=== PATIENT | male | born 1965 | race Caucasian/White ===

== ENCOUNTER → 2017-01-25 | Day surgery (SDC) | payer BC ==
[~2017-01-25] MED LIST: BUPIVACAINE/EPINEPHRINE 0.5% PF 10 ML VIAL ONE; GENTAMICIN SULFATE 80 MG/2 ML VIAL ONE; KETOROLAC TROMETHAMINE 30 MG/ML (IVP) VIAL IV PUSH ONE; LACTATED RINGER'S 1000 ML INJ 1,000 ML ONE; ONDANSETRON HCL 4 MG/2 ML VIAL IV PUSH ONE; PROPOFOL 200 MG/20 ML AMP IV ONE; SODIUM CHLORIDE 0.9% INJ 10 ML ONE; ceFAZolin INJ 1,000 MG VIAL ONE
--- NOTE | 2017-01-28 06:41 | MP ---
cc: TERESITA MUNOZ DATE OF SURGERY January 25, 2017 PREOPERATIVE DIAGNOSIS Left elbow olecranon bursitis with small wound. POSTOPERATIVE DIAGNOSIS Left elbow infected olecranon bursitis with small wound with abscess of distal humerus and proximal forearm. SURGEON Teresita Munoz MD FIRING PIN GAUGER Staff PROCEDURES 1. Left elbow excision of olecranon bursa with excision of draining wound. 2. Left distal humerus irrigation and debridement for abscess. 3. Left proximal forearm irrigation and debridement for abscess. CULTURES Five cultures. ANESTHESIA General anesthesia DRAINS 10-mm channel drain. TOURNIQUET TIME 0 minutes PROCEDURE The patient was brought back to the operative theater. General anesthesia was administered. Initially we expected that this was a non-infective process since there was no active drainage and no definite signs of overt infection, although he did have evidence of fluid collections and therefore he was given intravenous Ancef. The left upper she was prepped and draped in the usual sterile fashion with him in the supine position. Initially we started just by ellipsing the very small area of opening over the olecranon bursa. We found extremely thickened tissue over the bursa including the bursa as well. We ended up incising through the bursa and as we incised through the bursa then we found first an amount of brownish fluid which did not look definitively infected. There were multiple different pockets of thickening around the elbow, then as we started opening up these pockets, the first one being in the distal humerus, we found gross purulence. We found a significant amount of infected, necrotic fat. We continually worked our way around from the distal humerus to the lateral aspect, then to the proximal forearm dorsally and then to the medial aspect of the elbow. With each of these steps we found multiple different pockets of purulence, some within the skin itself, some within bursal tissue and some within thickened tissue that was laying directly on the fascia. We excised all of this thickened tissue including the distal humerus, medial and lateral elbow and also proximal forearm using both sharp resection including a rongeur, using a scalpel and also using a Bovie. We performed a complete bursectomy over the olecranon. There was significant granulation tissue over this area. We did again take five cultures, four of which were culture swabs and one of them was a tissue culture. After all this debridement had been completed, we then irrigated thoroughly the wound and all of the deep tissues. We exchanged instruments, put new the gloves on and placed a new drape down. We made decision to go ahead and put in a 10-mm channel drain which was left in a U-type fashion through the distal humerus and then extending down laterally towards the proximal forearm to allow for as much drainage as possible. We then closed skin with 2-0 Monocryl, followed by 3-0 nylon and we also sutured the drain into place as well. The patient had a bulky dressing applied. POSTOPERATIVE PLAN My recommendation to the patient is to move forward with a staged type of procedure, bringing him back to the operating room early next week for repeat debridement and hopefully final closure. I am concerned that if we do not have a repeat debridement, that the patient may have recurrence of his infection. Additionally, the patient will be given a prescription for Keflex and Bactrim which I want him to start today and then we will clinically follow the cultures to ensure that this patient does not require intravenous antibiotic treatment. MD OLMAN Dumont/GREY /3:36 PM /6:15 AM
== END | disposition home or self-care (01) ==
LOC: ESDC 12:56
PROVIDERS: ATTEND Orthopaedic Surgery
DX: M70.22 Olecranon bursitis, left elbow (principal)
CPT/HCPCS: 01710; 24105; 87070; 87176; 87205; J0690; J1580; J1885; J2405; J3010; J7120

== ENCOUNTER → 2017-01-29 | Day surgery (SDC) | payer BC ==
[~2017-01-29] MED LIST changes: +BUPIVACAINE HCL PF 0.25% 30 ML VIAL ONE; -BUPIVACAINE/EPINEPHRINE 0.5% PF 10 ML VIAL ONE; -GENTAMICIN SULFATE 80 MG/2 ML VIAL ONE; -KETOROLAC TROMETHAMINE 30 MG/ML (IVP) VIAL IV PUSH ONE; +LIDOCAINE HCL 1% PF 30 ML VIAL ONE; -SODIUM CHLORIDE 0.9% INJ 10 ML ONE
--- NOTE | 2017-01-29 22:42 | MP ---
cc: TERESITA MUNOZ MD DATE OF SURGERY 01/29/17 PREOPERATIVE DIAGNOSIS Left elbow infected olecranon bursitis status post irrigation and debridement. POSTOPERATIVE DIAGNOSIS Left elbow infected olecranon bursitis status post irrigation and debridement. SURGEON Renetta Munoz MD PAPER MACHINE OPERATOR IMAN De La Fuente PAPER MACHINE OPERATOR IMAN Webster The surgical procedure was assisted by my Advanced Registered Nurse Practitioner. My ANTI TANK MISSILEMAN presence was necessary throughout this case for the manipulation and positioning of the surgical extremity. My ANTI TANK MISSILEMAN was assisting me throughout the duration of this procedure. The skill set of an Advance Registered Nurse Practitioner was medically necessary to complete this procedure. During the surgical case, the ophthalmic technician apprentice was working at the back table and the Advance Registered Nurse Practitioner was directly assisting me. PROCEDURE Left elbow staged/planned revision excision of olecranon bursa with irrigation and debridement. ANESTHESIA General anesthesia PROCEDURE IN DETAIL The patient was brought back to operative theater. General anesthesia was administered. The patient received intravenous Ancef. The left upper extremity was prepped and draped in usual sterile fashion after general anesthesia had been administered. The previous sutures were removed and then we opened the skin which was healing very nicely with no skin breakdown. As soon as we opened the skin, we identified a mild amount of serosanguineous fluid within the arm. There was no recurrent purulence noted. There was some healthy-appearing granulation tissue overlying the olecranon bursa which was excised and debrided. We inspected all of the skin on the undersurface all through the distal humerus and also in the proximal forearm area. We did not find any recurrent signs of necrotic tissue. There was a vein that was leaking a little bit of blood which we Bovie coagulated. We used a rongeur around the olecranon bursa and then we also used multiple Ray-Tecs and olecranon pads to mechanically debride any nonviable tissue along the fascial plane and the undersurface of the skin and removed only a very small amount of material. We then thoroughly irrigated the entire wound including the space under the forearm and the distal humerus. We did excise some of the skin on the medial side because there was one small area that was a bit dusky and we wanted to have as much viable skin as possible. We then exchanged gloves after the irrigation and we then closed skin with 2-0 Monocryl followed by 3-0 nylon. The patient was placed into a bulky dressing. POSTOPERATIVE PLAN The patient will continue with the oral antibiotics which he was previously prescribed and we will clinically follow him for decision as far as length of antibiotics. Note that the five cultures that were taken at the previous surgery had been no growth. MD OLMAN Dumont/ /4:26 PM /10:36 PM
== END | disposition home or self-care (01) ==
LOC: ESDC 14:51
PROVIDERS: ATTEND Orthopaedic Surgery
DX: M71.122 Other infective bursitis, left elbow (principal)
CPT/HCPCS: 01710; 24105; J0690; J2405; J3010; J7120

== ENCOUNTER 2017-03-06 17:40 | Day surgery (SDC) | payer BC ==
[~2017-03-06] VITALS: Ht 198.1 cm; Wt 100.0 kg
[2017-03-06 18:10] VITALS: BP 122/73; PULSE 45; RESP 18; TEMP 97.9; O2SAT 99
[2017-03-06] MEDS ORDERED: VANCOMYCIN HCL 1000 MG VIAL ONE (18:13)
[2017-03-06] MEDS ORDERED: VANCOMYCIN INJ 1,000 MG in SODIUM CHLOR 0.9% 250 ML INJ 250 ML IV ONE (18:15)
--- NOTE | 2017-03-06 18:28 | PD.RAD ---
Radiology Post PICC Prog Note Pre Procedure Diagnosis: (1) Cellulitis of left elbow Post Procedure Diagnosis: (1) Cellulitis of left elbow Procedure: Right PICC line placement Procedure Date: Mar 06, 2017 Supervising Radiologist Jayden Dickson JR Proceduralist/Assist: Cici Salinas, RT(R)() Device Side: Right Vietnamese: 4 single lumen cm: 41 Catheter: Power PICC Plan of Activity Patient to Unit: [facility] Patient Condition: Good PICC line can be used immediately Jr. Randolph,Jayden Faria MD Mar 06, 2017 18:28
[2017-03-06] MEDS ORDERED: SODIUM CHLORIDE 0.9% FLUSH 10 ML FLUSH IVF PRN ×2 (18:30)
[2017-03-07] MEDS ORDERED: SODIUM CHLORIDE 0.9% FLUSH 10 ML FLUSH IVF SCH (09:00)
--- NOTE | 2017-03-07 09:29 | RADRPT ---
EXAM DATE/TIME: 03/06/2017 18:09 [facility] COMPARISON: No previous studies available for comparison. INDICATIONS : Patient is in need of placement of a right sided PICC line for medication administration. MEDICAL HISTORY : History of left elbow joint effusion, MRSA cellulitis. SURGICAL HISTORY : N/A ENCOUNTER: Initial ACUITY: 2 days PAIN SCORE: 0/10 FLUORO TIME: 0.2 minutes IMAGE SERIES: 1 ACCESS: Right basilic vein DEVICE(S): 1.) 4 Guamanian single lumen 41 cm Xcela Power PICC PROCEDURE : 1. Ultrasound guidance for venous catheterization. 2. Fluoroscopic guidance. 3. Ultrasound & fluoroscopic guided central venous Power PICC line placement. The risks, benefits and alternatives to the procedure were explained and verbal and written consent w as obtained. The site was prepped in sterile fashion. Full sterile technique was used, including ca p, mask, sterile gloves and gown and a large sterile sheet. Hand hygiene and 2% chlorhexidine prep w as utilized per protocol for cutaneous antisepsis with appropriate dry time for site. The skin and s ubcutaneous tissues were infiltrated with local anesthetic solution. Under direct ultrasound guidance, a suitable vein was accessed and a measuring guidewire was introduc ed and positioned in the central venous system. The ultrasound images depicting access guidance were saved and stored to PACS for permanent record. A Power Injectable PICC line was cut to prescribed length and introduced, positioned with tip at the cavoatrial junction level. The line was flushed and secured per protocol. CONCLUSION: 1. Uncomplicated central venous Power PICC line placement. 2. The PICC line can be used immediately. Jayden Dickson Jr., MD on March 07, 2017 at 9:26 Board Certified Radiologist. This report was verified electronically.
== END 2017-03-06 19:18 | disposition home or self-care (01) ==
LOC: HROP 17:40 → HRIP 17:45 → HROP 19:18
PROVIDERS: ATTEND Radiology Body Imaging
DX: L03.114 Cellulitis of left upper limb (principal)
CPT/HCPCS: 36569; 76937; 77001; C1751; J1642; J3370

== ENCOUNTER 2017-07-21 06:20 | Day surgery (SDC) | payer BC ==
[~2017-07-21] VITALS: Ht 198.1 cm; Wt 225.0 kg
[2017-07-21] MEDS ORDERED: GENTAMICIN SULFATE 80 MG/2 ML VIAL ONE (08:16)
[2017-07-21 09:16] VITALS: TEMP 97.6
[2017-07-21] MEDS ORDERED: SODIUM CHLORIDE 0.9% INJ 100 ML ONE (09:24)
[2017-07-21] MEDS ORDERED: DEXT 5%-NACL 0.45% 1000 ML INJ 1,000 ML IV SCH (09:26)
[2017-07-21] MEDS ORDERED: ONDANSETRON HCL 4 MG/2 ML VIAL IVP PRN (09:30)
[2017-07-21] MEDS ORDERED: oxyCODONE/ACETAMINOPHEN 5 MG/325 MG TAB PO PRN ×2 (09:30)
[2017-07-21] MEDS ORDERED: MORPHINE SULFATE 4 MG/ML INJ IV PUSH PRN (09:30)
[2017-07-21] MEDS ORDERED: VANCOMYCIN HCL 1000 MG VIAL ONE (09:30)
[2017-07-21] MEDS ORDERED: SODIUM CHLORIDE 0.9% FLUSH 5 ML FLUSH IVF PRN (09:30)
[2017-07-21] MEDS ORDERED: SODIUM CHLOR 0.9% 250 ML INJ 250 ML ONE (09:30)
[2017-07-21] MEDS ORDERED: diphenhydrAMINE HCL 25 MG CAP PO PRN (09:30)
--- NOTE | 2017-07-21 09:47 | MH ---
cc: MARTINEZ ROWE M.D. DATE OF ADMISSION: 07/21/2017 REASON FOR ADMISSION Left elbow pain and swelling with infection. HISTORY OF PRESENT ILLNESS This patient is a 51-year-old male who has developed chronic pain and swelling over his left elbow with symptoms consistent with olecranon bursitis. This has been going on greater than 6 months duration. He has had conservative treatment with multiple aspirations and multiple cortisone injections into the left elbow olecranon bursa. He always had recurrence of symptoms. He has subsequently undergone previous left elbow irrigation and debridement with excision of the olecranon bursa. He had a drain placed. He subsequently developed an infection and cultures grew out methicillin-resistant staph aureus. He was treated by Dr. Merry Montelongo, infectious disease with Zyvox antibiotic. He had some preliminary resolution of symptoms but then subsequently was in [place] and had a fall and new trauma with reinjury to that left elbow. He did have his elbow aspirated during his vacation in [place] after his fall. 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 Also recent aspiration showed gram-positive cocci under gram stain evaluation. He has had increased pain and swelling of his left elbow and has a fistula over the tip of the olecranon which is draining purulent fluid. He also has a separate area of swelling along the proximal third forearm along the ulnar border with redness and pain in this region as well. He was evaluated by the undersigned. He currently denies fevers or chills or malaise. PAST MEDICAL HISTORY Past medical history is otherwise negative. PAST SURGICAL HISTORY As above. MEDICATION He takes no medications. ALLERGIES He has no known drug allergies. SOCIAL HISTORY He is a nonsmoker, he occasionally drinks alcohol, no illicit drug use. He is very active and enjoys working out on a daily basis. REVIEW OF SYSTEMS Negative for 10 systems other than the HPI. EXAMINATION GENERAL: The patient is awake, alert, in no acute distress. HEENT: Normocephalic, atraumatic. Pupils are round, reactive to light. Extraocular muscles are intact. NECK: Neck is supple. LUNGS: Clear. HEART: Regular rate and rhythm. ABDOMEN: Soft, nontender. EXTREMITIES: Exam of the left upper extremity, he has a small opening along the tip of the olecranon with some surrounding erythema and slight drainage. He also has a separate area of swelling along the ulnar border proximal third forearm with tenderness, redness and swelling of this region as well. He has full painless range of motion of his left and right elbow. Strength is intact. No instability. Compartment soft, 2+ radial pulses. Neurovascularly intact distally. IMAGING STUDIES He had a recent MRI performed that shows no evidence of osteomyelitis. There is soft tissue swelling in the region of the olecranon bursa. IMPRESSION A 51-year-old male who has recurrent pain and swelling of the left elbow olecranon bursa. He has had previous surgery. He has had multiple cultures performed that grew out both methicillin-resistant staph aureus as well as two separate Mycobacterium organisms. He has increased pain and swelling and some purulent drainage noted. PLAN I discussed the diagnosis with the patient and treatment options, spoke about continued nonoperative treatment versus surgery. Surgery would consist of incision, drainage, irrigation, debridement, excision of the olecranon bursa. We spoke about the option of primary closure versus secondary intention closure with wound vac. I have spoken to Dr. Merry Montelongo as well as at the bedside with the patient in regards to treatment options for antibiotic therapy. We spoke about the risks and benefits including continued infection. At this point the patient does wish to proceed with surgical intervention which I do think is appropriate and this will consist of incision and drainage, excision of the olecranon bursa. I will send cultures in the operating room to include aerobic, anaerobic and acid-fast. Will also send pathology specimen as well. The patient declines a wound vac and prefers primary intention closure. He may get recurrent swelling and infection but he understands. Antibiotic therapy will be management by Dr. Montelongo, but at this point she is leaning towards IV antibiotics. All questions have been answered, surgical consent has been obtained through written consent and surgical site has been marked. MD NAYELI Montesinos/DANYELL /9:10 AM /9:28 AM
--- NOTE | 2017-07-21 10:14 | MP ---
cc: MARTINEZ ROWE DATE OF SURGERY: 07/21/2017 PREOPERATIVE DIAGNOSES Left elbow infected olecranon bursitis, recurrent. POSTOPERATIVE DIAGNOSIS Left elbow infected olecranon bursitis, recurrent. PROCEDURE Left elbow irrigation and debridement, excision olecranon bursa. SURGEON Dr. Martinez Rowe. ARTILLERY OFFICER JAMES Balderrama ANESTHESIA General. ESTIMATED BLOOD LOSS 50 ccs. TOURNIQUET TIME Zero minutes. COMPLICATIONS None. JUSTIFICATION This patient is a 51-year-old male who has had chronic pain, swelling of his left elbow with recurrent olecranon bursitis. He has undergone previous irrigation and debridement surgery. He has also had infection develop to include both MRSA and two different microbacterium organisms. He had recent pain and swelling this weekend with open fistula and purulent drainage noted to come from the elbow. I was contacted by the patient and evaluated the patient in regards to his condition. We spoke about different treatment options. The patient did wish to proceed with surgical irrigation and debridement as outlined above. PROCEDURE IN DETAIL A written consent was obtained. The patient was identified by name, taken to the operating room and placed supine on the operating table. General anesthesia was administered to the patient. We did hold the antibiotic therapy in order to obtain deep cultures. After adequate general anesthesia was administered, the left upper extremity was then prepped and draped using isopropyl alcohol, Hibiclens solution and DuraPrep solution. After a time-out was performed a longitudinal incision was made over the posterior aspect of the left elbow. The area of the open draining fistula was excised with a 15 blade scalpel. There is a small amount of purulent fluid noted to come from the tip of the olecranon and the draining fistula. There was a separate area of swelling along the proximal third forearm region in line with the olecranon border. There was a copious amount of purulent fluid noted to come from this area. I did obtain the cultures from both areas including aerobic, anaerobic and acid-fast bacterium and excision of the synovial and bursal lining surrounding the abscess was completely excised and sent for pathology. After a complete excisional debridement, the wound was thoroughly irrigated with sterile saline pulse lavage antibiotic impregnated solution. Hibiclens and sterile saline was placed on the back table and the wound was then scrubbed and debrided. After the Hibiclens cleansing, I again pulse lavaged, irrigated the wound until it looked completely clean. Edy cautery was used for hemostasis as needed and the wound was then closed primarily with #3-0 Nylon suture. Sterile dressings were applied. The patient tolerated the procedure well with no intraoperative complications noted. MD NAYELI Montesinos/DANYELL /9:16 AM /9:46 AM
[2017-07-21] MEDS ORDERED: PERC5TAB12 PO (10:29)
[2017-07-21 10:30] VITALS: BP 141/68; PULSE 70; RESP 16; O2SAT 99
[2017-07-21] MEDS ORDERED: LACTATED RINGER'S 1000 ML IV PRN (11:15)
[2017-07-21] MEDS ORDERED: POVIDONE IODINE 5% (ANTISEPSIS KIT) 4 APPLICATIONS EACH NARE PRN (11:15)
[2017-07-21] MEDS ORDERED: CHLORHEXIDINE GLUCONATE 2 % 1 PACK (2 CLOTHS) TOPICAL PRN (11:15)
[2017-07-21] MEDS ORDERED: SODIUM CHLORID 0.9% 500 ML IV PRN (11:15)
[2017-07-21] MEDS ORDERED: METOPROLOL TARTRATE 25 MG TAB PO PRN (11:15)
[2017-07-21] MEDS ORDERED: INSULIN HUMAN REGULAR 1,000 UNITS/10 ML VIAL SQ PRN (11:15)
[2017-07-21] MEDS ORDERED: DO NOT ADM ANY ANTICOAGULANT DRUGS PRN (11:30)
[2017-07-21] MEDS ORDERED: PROPOFOL 200 MG/20 ML AMP IV ONE (12:00)
[2017-07-21] MEDS ORDERED: ONDANSETRON HCL 4 MG/2 ML VIAL IV PUSH ONE (12:00)
[2017-07-21] MEDS ORDERED: LIDOCAINE HCL 1% PF 5 ML AMPULE OTHER ONE (12:00)
[2017-07-21] MEDS ORDERED: MIDAZOLAM HCL 2 MG/2 ML VIAL IV ONE (12:00)
[2017-07-21] MEDS ORDERED: ePHEDrine/NS 25 MG/5 ML SYR IV ONE (12:00)
[2017-07-21] MEDS ORDERED: DEXAMETHASONE SOD PHOS 4 MG/ML VIAL IV ONE (12:00)
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
[2017-07-21] MEDS ORDERED: SODIUM CHLORIDE 0.9% FLUSH 5 ML FLUSH IVF SCH (21:00)
== END 2017-07-21 10:55 | disposition home or self-care (01) ==
LOC: HOR 06:20 → HPAC 10:39 → HOR 10:55
PROVIDERS: ATTEND Orthopaedic Surgery Sports Medicine
DX: M71.122 Other infective bursitis, left elbow (principal); M25.522 Pain in left elbow; G89.29 Other chronic pain; Z86.14 Personal history of Methicillin resistant Staphylococcus aureus infection
CPT/HCPCS: 01710; 24105; 87015; 87070; 87102; 87116; 87176; 87205; 87206; 88305; J1100; J1580; J2250; J2405; J3010; J3370; J7050; 87185; 88312

== ENCOUNTER 2017-07-30 06:10 | Day surgery (SDC) | payer BC ==
[~2017-07-30 06:10] MED LIST changes: -BUPIVACAINE HCL PF 0.25% 30 ML VIAL ONE; -LACTATED RINGER'S 1000 ML INJ 1,000 ML ONE; -LIDOCAINE HCL 1% PF 30 ML VIAL ONE; -ONDANSETRON HCL 4 MG/2 ML VIAL IV PUSH ONE; +PERC5TAB12 PO; -PROPOFOL 200 MG/20 ML AMP IV ONE; -ceFAZolin INJ 1,000 MG VIAL ONE
[2017-07-30] MEDS ORDERED: AUGM875T3 PO (06:32)
[2017-07-30 06:37] VITALS: BP 117/66; PULSE 50; RESP 20; TEMP 98.2; O2SAT 97
[2017-07-30] MEDS ORDERED: LIDOCAINE 1%/EPINEPHrine 1:100,000 SOLN 20 ML VIAL ONE (07:55)
--- NOTE | 2017-07-30 08:29 | PD.RAD ---
Post Procedure Progress Note Pre Procedure Diagnosis: (1) Cellulitis of left elbow Post Procedure Diagnosis: (1) Cellulitis of left elbow Procedure Date: Jul 30, 2017 Supervising Radiologist: Paul Persaud Proceduralist/Assist: Cici Salinas RT(R)(), RT Darren(R) Anesthesia: General Plan of Activity Patient to Unit: [facility] Patient Condition: Good See PACS Report for procedural detail/treatment Paul Persaud MD Jul 30, 2017 08:29
[2017-07-30 08:35] VITALS: BP 113/64; PULSE 58; RESP 20; TEMP 97.3; O2SAT 98
--- NOTE | 2017-07-30 09:28 | RADRPT ---
EXAM DATE/TIME: 07/30/2017 07:42 [facility] COMPARISON: PICC LINE INSERTION,POWER W/FL&US, March 06, 2017, 18:09. INDICATIONS : Patient with history of olecranon bursitis in need of PICC line placement. MEDICAL HISTORY : MRSA SURGICAL HISTORY : Left elbow irrigation and debridement, PICC line, Bursectomy ENCOUNTER: Subsequent ACUITY: 4-6 months PAIN SCORE: 0/10 FLUORO TIME: 0.1 minutes IMAGE SERIES: 0 ACCESS: Right internal jugular vein DEVICE(S): 1.) 5 Portuguese single lumen 33 cm Tunneled PICC PROCEDURE : 1. Ultrasound guidance for venous catheterization. 2. Fluoroscopic guidance. 3. Ultrasound & fluoroscopic guided central venous Power PICC line placement. The risks, benefits and alternatives to the procedure were explained and verbal and written consent w as obtained. The site was prepped in sterile fashion. Full sterile technique was used, including ca p, mask, sterile gloves and gown and a large sterile sheet. Hand hygiene and 2% chlorhexidine prep w as utilized per protocol for cutaneous antisepsis with appropriate dry time for site. Sterile gel a nd sterile probe cover were utilized for ultrasound guidance. The skin and subcutaneous tissues wer e infiltrated with local anesthetic solution. Under direct ultrasound guidance, a suitable vein was accessed and a measuring guidewire was introduc ed and positioned in the central venous system. The ultrasound images depicting access guidance were saved and stored to PACS for permanent record. A Power Injectable PICC line was cut to prescribed length and introduced, positioned with tip at the cavoatrial junction level. The line was flushed and secured per protocol. CONCLUSION: 1. Uncomplicated central venous Power PICC line placement. 2. The PICC line can be used immediately. Paul Persaud MD on July 30, 2017 at 9:25 Board Certified Radiologist. This report was verified electronically.
== END 2017-07-30 08:39 | disposition home or self-care (01) ==
LOC: HRIP 06:10 → HROP 06:10
PROVIDERS: ATTEND Radiology Body Imaging
DX: Z45.2 Encounter for adjustment and management of vascular access device (principal); L03.114 Cellulitis of left upper limb
CPT/HCPCS: 36558; 76937; 77001; C1751; J1642

== ENCOUNTER 2017-08-12 07:59 | Day surgery (SDC) | payer BC ==
[~2017-08-12 07:59] MED LIST changes: +AUGM875T3 PO
[2017-08-12] MEDS ORDERED: NEOMYCIN/POLYMYXIN/BACITRACIN OINT 0.9 GM PACKET OTHER ONE (08:30)
--- NOTE | 2017-08-12 09:31 | RADRPT ---
EXAM DATE/TIME: 08/12/2017 00:00 [facility] COMPARISON: No previous studies available for comparison. INDICATIONS : Completed therapy. Request to remove tunneled PICC line PROCEDURE : 1. Tunneled PICC line removal. The risks, benefits and alternatives to the procedure were explained and verbal and written consent w as obtained. The site was prepped in sterile fashion. Full sterile technique was used, including ca p, mask, sterile gloves and gown and a large sterile sheet. Hand hygiene and 2% chlorhexidine and/or betadine/alcohol prep was utilized per protocol for cutaneous antisepsis. The skin and subcutaneous tissues were infiltrated with local anesthetic solution. The tract was anesthetized with 1% Lidocaine using. The PICC line cuff was dissected from the subcut aneous tissues and easily removed in one piece. Manual pressure was applied to the venotomy site unt il hemostasis was obtained. Sterile dressing was applied. The patient tolerated the procedure well and there were no complications. CONCLUSION: Uncomplicated tunneled PICC line removal. Dave Hankins MD on August 12, 2017 at 9:28 Board Certified Radiologist. This report was verified electronically.
== END 2017-08-12 08:40 | disposition home or self-care (01) ==
LOC: HROP 07:59 → HRIP 08:00 → HROP 08:40
PROVIDERS: ATTEND Radiology Body Imaging
DX: Z45.2 Encounter for adjustment and management of vascular access device (principal)
CPT/HCPCS: 36589; 77001

== ENCOUNTER 2017-08-16 10:01 | Observation (INO) | payer BC ==
[~2017-08-16] VITALS: Ht 198.1 cm; Wt 102.1 kg
[2017-08-16] MEDS ORDERED: INSULIN HUMAN REGULAR 1,000 UNITS/10 ML VIAL SQ PRN (10:30)
[2017-08-16] MEDS ORDERED: METOPROLOL TARTRATE 25 MG TAB PO PRN (10:30)
[2017-08-16] MEDS ORDERED: SODIUM CHLORID 0.9% 500 ML IV PRN (10:30)
[2017-08-16] MEDS ORDERED: CHLORHEXIDINE GLUCONATE 2 % 1 PACK (2 CLOTHS) TOPICAL PRN (10:30)
[2017-08-16] MEDS ORDERED: POVIDONE IODINE 5% (ANTISEPSIS KIT) 4 APPLICATIONS EACH NARE PRN (10:30)
[2017-08-16] MEDS ORDERED: LACTATED RINGER'S 1000 ML IV PRN (10:30)
[2017-08-16] MEDS ORDERED: ZANT150T2 PO (10:37)
[2017-08-16] MEDS ORDERED: ACETAMINOPHEN 1000 MG/100 ML 0 ML IV ONE (11:14)
[2017-08-16] MEDS ORDERED: GENTAMICIN SULFATE 80 MG/2 ML VIAL ONE (11:14)
[2017-08-16] MEDS ORDERED: CHLORHEXIDINE GLUCONATE 4% SOLN 120 ML BTL TOPICAL SCH (11:15)
[2017-08-16] MEDS ORDERED: PROPOFOL 500 MG/50 ML INJ 50 ML ONE (11:16)
[2017-08-16] MEDS ORDERED: ONDANSETRON HCL 4 MG/2 ML VIAL IVP PRN (11:30)
[2017-08-16] MEDS ORDERED: Vancomycin Consult Pharmacy 1 EA OTHER SCH (11:30)
[2017-08-16] MEDS ORDERED: MORPHINE SULFATE 4 MG/ML INJ IV PUSH PRN (11:30)
[2017-08-16] MEDS ORDERED: DEXAMETHASONE SOD PHOS 4 MG/ML VIAL IV ONE (12:00)
[2017-08-16] MEDS ORDERED: PROPOFOL 200 MG/20 ML AMP IV ONE (12:00)
[2017-08-16] MEDS ORDERED: LIDOCAINE HCL 1% PF 5 ML SYRINGE OTHER ONE (12:00)
[2017-08-16] MEDS ORDERED: ONDANSETRON HCL 4 MG/2 ML VIAL IV PUSH ONE (12:00)
[2017-08-16] MEDS ORDERED: KETOROLAC TROMETHAMINE 30 MG/ML (IVP) VIAL IV PUSH ONE (12:00)
--- NOTE | 2017-08-16 12:26 | PD.OP ---
cc: Barber Carlson MD Operative Report Date of Surgery: Aug 16, 2017 Preoperative Diagnosis: Left elbow infected olecranon bursitis Postoperative Diagnosis: Procedure: Irrigation and debridement with excision of olecranon bursitis, application wound VAC dressing Anesthesia: Gen. Surgeon: Barber Carlson Sports Photographer(s): ANGEL Booker PA-C The surgical procedure was assisted by my physician inside sales assistant. My P.A. presence was necessary throughout this case for the manipulation and positioning of the surgical extremity. My P.A. was assisting me throughout the duration of this procedure. The skill set of a physician inside sales assistant was medically necessary to complete this procedure. During the surgical case the surgical first assistant was working at the back table and the physician inside sales assistant was directly assisting me. Operation and Findings: Patient was seen and evaluated preoperatively. Patient was found to have recurrent infection of the left olecranon bursa. He has had 2 prior surgeries on his left elbow. He has also been on IV antibiotics. He has had multiple positive cultures from his left elbow. Patient had an area of wound dehiscence with purulent drainage present. Informed consent was obtained after detailed discussion of risk and benefits of surgery. Operative site was marked. Patient was brought to the operating room. IV sedation and GETA were administered by anesthesiologist. Operative arm was prepped with alcohol followed by Hibiclens and draped in usual sterile fashion. Timeout procedure was performed. Procedure began with a 4 cm incision over the olecranon bursa. Subcutaneous tissue dissected with Bovie. Full-thickness skin was excised. There was an area of purulent drainage. Multiple Specimen was obtained for cultures and sensitivities and for pathology. Curettes and rongeurs were now used to sharply debride the olecranon bursa. The entire pseudo-synovial lining of the olecranon bursa region was carefully excised. Curettes were also used to debride the olecranon bursa and soft tissue.. After excisional debridement was complete, the wound was thoroughly irrigated with sterile saline. At this point the wound was clean. Because of the recurrent nature of this infection, the wound was left open. A VAC dressing was applied. VAC dressing was sealed appropriately. Sterile dressings were applied. Patient was awakened and transferred to recovery in stable condition. Needle and sponge counts were correct Barber Carlson MD Aug 16, 2017 12:26
[2017-08-16] MEDS ORDERED: DO NOT ADM ANY ANTICOAGULANT DRUGS PRN (12:38)
[2017-08-16] MEDS ORDERED: PIPERACIL-TAZO 4.5 GM PREMIX 100 ML IV SCH (13:00)
[2017-08-16] MEDS ORDERED: VANCOMYCIN INJ 1,500 MG in SODIUM CHLORID 0.9% 500 ML INJ 500 ML IV SCH (13:00)
[2017-08-16] MEDS: LACTATED RINGER'S 1000 ML INJ 1,000 ML IV SCH ×2 (13:00→22:48)
[2017-08-16] MEDS ORDERED: MISCELLANEOUS PHARMACY INFORMATION XX PRN (15:00)
[2017-08-16] MEDS ORDERED: ASP: Other exception documentation: ( ) PRN (15:00)
[2017-08-16] MEDS ORDERED: Amikacin Consult Pharmacy 1 EA OTHER SCH (15:00)
[2017-08-16 15:47] LABS: INDIRECT BILIRUBIN 0.2 MG/DL (0.0-0.8); TOTAL BILIRUBIN ADULT 0.4 MG/DL (0.2-1.0)
--- NOTE | 2017-08-16 15:51 | EKG ---
Date Performed: 08/16/2017 Time Performed: 10:36:18 PTAGE: 51 years EKG: SINUS BRADYCARDIA INCOMPLETE RIGHT BUNDLE BRANCH BLOCK BORDERLINE ECG NO PREVIOUS TRACING DOCTOR: Harshil Astorga Interpretating Date/Time 08/16/2017 15:49:44
[2017-08-16] MEDS: ACETAMINOPHEN/HYDROcodone 325 MG/7.5 MG TAB PO PRN ×3 (15:59→22:04)
[2017-08-16 16:00] VITALS: BP 122/60; PULSE 53; RESP 16; TEMP 98.2; O2SAT 97
[2017-08-16] MEDS: AMIKACIN IV SCH (18:26)
[2017-08-16] MEDS: SODIUM CHLORID 0.9% IV SCH (18:26)
[2017-08-16] MEDS: IMIPENEM/CILASTATIN INJ 500 MG in SODIUM CHLORIDE 0.9% INJ 100 ML IV SCH ×2 (18:27→23:42)
[2017-08-16 20:51] VITALS: BP 122/60; PULSE 61; RESP 20; TEMP 97; O2SAT 95
[2017-08-16] MEDS: CLARITHROMYCIN 500 MG TAB PO SCH (21:30)
[2017-08-16] MEDS: FAMOTIDINE 20 MG TAB PO SCH (21:30)
[2017-08-16] MEDS: VANCOMYCIN INJ 1,500 MG in SODIUM CHLORID 0.9% 500 ML INJ 500 ML IV SCH (21:32)
--- NOTE | 2017-08-16 21:56 | PD.ID.CON ---
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 Bursa was excised, but effusion recurred and culture was positive for MRSA. He completed treatment with zyvox with complete resolution of infection Later on same culture specimen (obtained from drain) grew out M abscessus and BARTOLO, extreme resistance pattern (both isolates were S to biaxine only, M. abscess also S to tygacyl and amikacin, BARTOLO I to rifabutine) Clinically pt was doing very well and decision was made to observe In March pt developped traumatic hematoma of the same elbow [place] [facility] and it was successfully treated with drainage and short course of abx Pt was doing fine and returned to his normal high level athletic activity, until one month ago when he developped again swelling and drainage from the elbow Pt underwent I+D He grew out Peptostreptococcus magnum, but his path was c/w mycobacterial infection - dw pathologists AFB stains were negative and cultures are negative @ 3 weeks Pt developped dehiscence of proximal aspect of his incision right over olecranon, but the wound was healing and has minimal drainage Pt was started on Baixine, Tygacyl and rifabutin added base on his only options from previous sensitivity profile , but 5 days ago they were stopped 2/ 2 prominent nausea, fatigue and markedly elevated AST/ALT Last night pt noticed pain and redness, swelling and yellowish drainage He underwent I+D this am with VAC placement G stains were negative with paucity of WBC Pt is afebrile and with nl WBC. His LFTs are decreasing Pt also c/o small lesion @ R chest where he had his PICC with minimal drainage Review of Systems Constitutional: COMPLAINS OF: Fatigue (started with new abx ) Except as stated in HPI: all other systems reviewed are Neg Past Family Social History Allergies: Coded Allergies: No Known Allergies (Verified Allergy, Unknown, 08/16/17) tigecycline (Verified Adverse Reaction, Unknown, Swelling, 11/17/17) Past Medical History mild sleep apnea Past Surgical History multiple L elbow procedures since spring of this year Active Ordered Medications Medications where reviewed in EMR Antibiotics Include: armando nunez Family History no h/o RA or lupus Social History No Tobacco. No ETOH. No Illicit Drugs. Travel history includes frequent travel to [facility] including March this year Physical Exam Vital Signs Vital Signs Date Time Temp Pulse Resp B/P (MAP) Pulse Ox O2 Delivery O2 Flow Rate FiO2 08/16/17 20:51 97.0 61 20 122/60 (80) 95 08/16/17 16:00 98.2 53 16 122/60 (80) 97 08/16/17 15:15 50 12 121/64 (83) 97 Room Air 08/16/17 15:00 51 12 117/60 (79) 97 Room Air 08/16/17 14:30 47 12 116/59 (78) 97 Room Air 08/16/17 14:00 53 18 123/66 (85) 96 Room Air 08/16/17 13:45 52 12 116/69 (85) 96 Room Air 08/16/17 13:30 53 15 121/73 (89) 98 Room Air 08/16/17 13:15 53 24 118/74 (89) 97 Room Air 08/16/17 13:00 51 15 116/75 (89) 97 Room Air 08/16/17 12:45 97.4 61 15 118/73 (88) 97 Room Air 08/16/17 11:00 97.1 61 16 116/69 (85) 97 Physical Exam CONSTITUTIONAL/GENERAL: This is an adequately nourished patient, in no apparent distress. TUBES/LINES/DRAINS: Previous PICC site on R chest - OK small lesion @ R chest where he had his PICC with minimal drainage SKIN: No jaundice, rashes, or lesions. . Skin temperature appropriate. Not diaphoretic. HEAD: Atraumatic. Normocephalic. EYES: Pupils equal and round and reactive. Extraocular motions intact. No scleral icterus. No injection or drainage. Fundi not examined. No nystagmus ENT: Hearing grossly normal. Nose without bleeding or purulent drainage. Oral mucosae without visible erythema, exudates, masses, or lesions. NECK: Trachea midline. CARDIOVASCULAR: Regular rate and rhythm without murmurs, gallops, or rubs. No JVD. Peripheral pulses symmetric. RESPIRATORY/CHEST: Symmetric, unlabored respirations. Clear to auscultation. Breath sounds equal bilaterally. No wheezes, rales, or rhonchi. GASTROINTESTINAL: Abdomen soft, non-tender, nondistended. No hepato-splenomegaly , or palpable masses. No guarding. Bowel sounds present. MUSCULOSKELETAL: extremities and without clubbing, cyanosis, or edema. No joint tenderness or effusion noted. No calf tenderness. LUE with VAC in place with serosang d/c, surg dressin gin place NEUROLOGICAL: Awake and alert. Motor and sensory grossly within normal limits. Follows commands. Cognitively sharp. Moves all extremities. PSYCHIATRIC: No obvious anxiety/depression. no apparent hallucinations or other psychotic thought process. 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 - per path, clinical picture and previous micro data sp multiple surgeries uanble to tolerate tygacyl based Rx 2/2 med induced hepatitis (resolving after stopping medx) Recent Peptostreptococal infection of L olecranon bursa Previous MRSA infection of L olecranon bursa New episode of infection could be also bacterial superinfection vs worsening of NTM infeciton course Given chronicity of the pt's disease and unresolving/recurrent course most likley it is mycobacterial infection with episodic becterial superinfection No e/o systemic disease to suggest RA, sarcoidosis or other non infectious disaeses with granulematous inflammation Foreign body granulemas formation also seen on his recent path will start M abscessus/ MAC tx with Primaxin, amikacin, biaxin pt unable tolerate rifabutin (only I) no other options for BARTOLO per preious report will keep on vanco untill MRSA r/o'd Pt was counseled on side effects of amikacin re renal, char, vestibular toxicity Instructed to report dizziness, tinnitis and hearing issues PLAN: fu P clx anticipate d/c on po abx per clx reports + biaxine Decision on continuation of amikacin will be made on Saturday once path and AFB stains availbale fu culture of small lesion @ R chest where he had his PICC Discussed Condition With pt Shaina Wolff mother, sister @ b/s Discharge Planning probably tomorrow with VAC and C Merry Montelongo MD Aug 16, 2017 21:56
[2017-08-17] VITALS (7 sets, daily range): BP systolic 124–150; BP diastolic 63–77; PULSE 55–67; RESP 17–20; TEMP 95.7–97.4; O2SAT 96–98
[2017-08-17] MEDS: ACETAMINOPHEN/HYDROcodone 325 MG/7.5 MG TAB PO PRN ×2 (00:57→20:04)
[2017-08-17] MEDS ORDERED: PHARMACY ORDERED LAB ONE (05:00)
[2017-08-17] MEDS: IMIPENEM/CILASTATIN INJ 500 MG in SODIUM CHLORIDE 0.9% INJ 100 ML IV SCH ×3 (06:23→17:25)
[2017-08-17] MEDS ORDERED: ENDO7.5T10 PO (07:35)
--- NOTE | 2017-08-17 07:41 | PD.ORT.PN ---
Subjective Subjective Remarks Resting comfortably with no new complaints Objective Vitals Vital Signs Date Time Temp Pulse Resp B/P (MAP) Pulse Ox O2 Delivery O2 Flow Rate FiO2 08/17/17 05:44 96 08/17/17 02:24 97.4 63 20 124/63 (83) 96 08/16/17 20:51 97.0 61 20 122/60 (80) 95 08/16/17 16:00 98.2 53 16 122/60 (80) 97 08/16/17 15:15 50 12 121/64 (83) 97 Room Air 08/16/17 15:00 51 12 117/60 (79) 97 Room Air 08/16/17 14:30 47 12 116/59 (78) 97 Room Air 08/16/17 14:00 53 18 123/66 (85) 96 Room Air 08/16/17 13:45 52 12 116/69 (85) 96 Room Air 08/16/17 13:30 53 15 121/73 (89) 98 Room Air 08/16/17 13:15 53 24 118/74 (89) 97 Room Air 08/16/17 13:00 51 15 116/75 (89) 97 Room Air 08/16/17 12:45 97.4 61 15 118/73 (88) 97 Room Air 08/16/17 11:00 97.1 61 16 116/69 (85) 97 I/O 08/16/17 08/16/17 08/16/17 08/17/17 08/17/17 08/17/17 07:00 15:00 23:00 07:00 15:00 23:00 Intake Total 500 ml 300 ml 1120.76 ml Output Total 50 ml 25 ml 800 ml Balance 450 ml 275 ml 320.76 ml Intake IV Total 500 ml 300 ml 1120.76 ml Output Urine Total 800 ml Drainage Total 25 ml Estimated Blood Loss 50 ml Result Diagram: 08/16/17 1444 Objective Remarks Left upper extremity: Clean dry dressings intact. Wound VAC in position. Appropriate seal. Distally intact sensation of her radial ulnar and median nerve distributions with good capillary refills Assessment & Plan Assessment and Plan Infected left olecranon bursa with wound VAC application POD 1 Case management for home wound VAC VAC changes Saturday, Saturday, Saturday Once wound VAC is obtained patient may be discharged. Antibiotics to be managed by infectious disease Follow-up Dr. Robyn RAMIREZ in 2 weeks Mathieu Brower Jr. Aug 17, 2017 07:41
--- NOTE | 2017-08-17 07:45 | HHI.FF ---
Face to Face Verification Diagnosis: (1) Bursitis of elbow Nursing RN Days per Week: 3 Additional Instructions Wound VAC changes left elbow. 125 mmHg with DPC 3:1 I have seen patient Maynor De La O on 08/17/17. My clinical findings support the need for the requested home health care services because: Infection w/ risk of complications I certify that my clinical findings support that this patient is homebound because: Post-op weakness Mathieu Brower Jr. Aug 17, 2017 07:45
--- NOTE | 2017-08-17 08:47 | HHI.PR ---
Addendum to Inpatient Note Additional Information clx reviewed - Gsstain negs neg /, clx P LFTs better cr WNL will cont current in pt abx IIf pt gets d/c'd this am will dc on Biaxine, doxycyline and augmentin - per previous culture history Abx will be adjusted per clx reports Merry Montelongo MD Aug 17, 2017 08:47
[2017-08-17] MEDS ORDERED: AUGM875T3 PO (08:49)
[2017-08-17] MEDS: LACTATED RINGER'S 1000 ML INJ 1,000 ML IV SCH ×2 (09:00→18:32)
[2017-08-17] MEDS: CLARITHROMYCIN 500 MG TAB PO SCH ×2 (09:45→19:49)
[2017-08-17] MEDS: FAMOTIDINE 20 MG TAB PO SCH ×2 (09:45→19:49)
[2017-08-17] MEDS: VANCOMYCIN INJ 1,500 MG in SODIUM CHLORID 0.9% 500 ML INJ 500 ML IV SCH (09:45)
[2017-08-17] MEDS ORDERED: PNEUMOCOCCAL POLYVALENT INJ 25 MCG/0.5 ML SYR IM ONE (10:00)
[2017-08-17] MEDS: AMIKACIN IV SCH (18:55)
[2017-08-17] MEDS: SODIUM CHLORID 0.9% IV SCH (18:55)
[2017-08-18] MEDS ORDERED: PHARMACY ORDERED LAB ONE (08:45)
--- NOTE | 2017-08-19 16:19 | HHI.PR ---
Addendum to Inpatient Note Additional Information path rsults dw Dr Jimenes and Dr Carlson acute, chronic and granulomatous inflammation with some polizing foreing material; AFB and fungal stains are negative All AFB and fungal stains neg 4/4 Gstains and routine clx neg @ 72 hrs WBC from 08/13 2.0 (nl results a month prior) Assessment: probable foregn body granulomatous inflammation of L elbow bursa; resolved NTM infection of L elbow bursa s/p multiple I+Ds, now sp debridement and VAC on 08/16 Rec's; will stop ALL antimicrobials at this point repeat CBC today will follow clx untill final cont VAC dressing therapy per Dr Carlson rec's if pt develops any sings of infection will culture and restart abx Plan was discussed with Dr Carlson and the patient over the phone and they are agreable Merry Montelongo MD Aug 19, 2017 16:19
--- NOTE | 2017-08-23 14:39 | HHI.PR ---
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 Bactererial L elbow septic bursitis on 2 separate occasions, due to MRSA and Peptostreptococcus - resolved documented presence of NTMs (M abscess, BARTOLO) in L elbow bursa following sterroid injections and multiple drains placement - highly resistant organisms were found Pt was unable to tolerate combination abx tx (Biaxine, tygacyl, rifabutine) based on sensitivity report due to serious side effects, including medication induced hepatitis, neutropenia (ANC appx 700) and extreme fatigue All above complications promptly resolved after abx were discontinued s/p multiple I+Ds (3 surgeries since December 2016) , now sp debridement and VAC on 08/16, again all clx remain negative Pt reportedly healing nicely and has no new c/o Pt's EKG from 08/16 was reviewed: NSR 57; RBBB, QTc 417 Rec's; Biaxine resumed as of Aug 21 -No other anti NTMs added 2/2 documented resistance and severe side effects will fu lab work on Sat (BMP, Mg, CBC, LFTs) , weekly to biweekly CBC/CMP after periodic EKG for QTc monitoring Instructed NOT to take statins (quit 2 mos ago) - will need to follow cholestrol instead; if clinically indicated use pravastatine up to 40 mg OK with caution will follow AFB clx untill final cont VAC therapy per Dr Carlson rec's dw Dr Carlson - will likely need skin grafting Plan to Rx x 6 + mos (thru Feb 18 2018) if good response and tolerability Pt was instructed to avoid strenous exercise activity with affected extremety untill healing completed Side effects and limitations of proposed tx were dw pt in details, all questions answered to full extent and he is agreable to current tx plan will cont to follow clinically Merry Montelongo MD Aug 23, 2017 14:39
== END 2017-08-17 22:00 | disposition home or self-care (01) ==
LOC: HSDC 10:01 → HSDI 11:35 → N07B 15:43
PROVIDERS: ADMIT Orthopaedic Surgery Orthopaedic Trauma; ATTEND Orthopaedic Surgery Orthopaedic Trauma
DX: M71.122 Other infective bursitis, left elbow (principal); T81.31XD Disruption of external operation (surgical) wound, not elsewhere classified, subsequent encounter; D70.9 Neutropenia, unspecified; I45.10 Unspecified right bundle-branch block; G47.30 Sleep apnea, unspecified; Z23 Encounter for immunization; Z86.14 Personal history of Methicillin resistant Staphylococcus aureus infection
CPT/HCPCS: 01710; 24105; 80076; 80150; 82565; 85652; 86140; 87015; 87070; 87102; 87116; 87205; 87206; 88304; 88312; 88331; 90732; 93005; 96365; 96366; 96367; 96368; 96376; 97607; G0378; J0278; J0743; J1100; J1580; J1885; J2405; J2543; J3010; J3370; J7040; J7120; J0131

== ENCOUNTER 2017-08-28 16:52 | Day surgery (SDC) | payer BC ==
[2017-08-28 16:45] VITALS: BP 152/71; PULSE 66; RESP 20; TEMP 98.4; O2SAT 99
[~2017-08-28 16:52] MED LIST changes: +ENDO7.5T10 PO; -PERC5TAB12 PO; +ZANT150T2 PO
--- NOTE | 2017-08-29 09:47 | RADRPT ---
EXAM DATE/TIME: 08/28/2017 17:13 [facility] COMPARISON: No previous studies available for comparison. INDICATIONS : Patient with a history of MRSA needs PICC MEDICAL HISTORY : MRSA SURGICAL HISTORY : Left elbow irrigation and debridement, PICC line, Bursectomy ENCOUNTER: Subsequent ACUITY: 4-6 months PAIN SCORE: 0/10 FLUORO TIME: 1.4 minutes IMAGE SERIES: 1 ACCESS: Right subclavian vein DEVICE(S): 1.) 5 Lao dual lumen 25 cm Xcela Power PICC PROCEDURE : 1. Ultrasound guidance for venous catheterization. 2. Fluoroscopic guidance. 3. Ultrasound & fluoroscopic guided central venous Power PICC line placement. The risks, benefits and alternatives to the procedure were explained and verbal and written consent w as obtained. The site was prepped in sterile fashion. Full sterile technique was used, including ca p, mask, sterile gloves and gown and a large sterile sheet. Hand hygiene and 2% chlorhexidine prep w as utilized per protocol for cutaneous antisepsis with appropriate dry time for site. Sterile gel a nd sterile probe cover were utilized for ultrasound guidance. The skin and subcutaneous tissues wer e infiltrated with local anesthetic solution. Under direct ultrasound guidance, a suitable vein was accessed and a measuring guidewire was introduc ed and positioned in the central venous system. The ultrasound images depicting access guidance were saved and stored to PACS for permanent record. A Power Injectable PICC line was cut to prescribed length and introduced, positioned with tip at the cavoatrial junction level. The line was flushed and secured per protocol. CONCLUSION: 1. Uncomplicated central venous Power PICC line placement. 2. The PICC line can be used immediately. Beto Barraza MD on August 29, 2017 at 9:45 Board Certified Radiologist. This report was verified electronically.
== END 2017-08-28 18:37 | disposition home or self-care (01) ==
LOC: HROP 16:52 → HRIP 16:55 → HROP 18:37
PROVIDERS: ATTEND Radiology Body Imaging
DX: Z45.2 Encounter for adjustment and management of vascular access device (principal); M71.122 Other infective bursitis, left elbow; Z86.14 Personal history of Methicillin resistant Staphylococcus aureus infection
CPT/HCPCS: 36558; 76937; 77001; C1751; C1894; J1642

== ENCOUNTER 2018-08-12 11:04 | Inpatient (IN) ==
[2018-08-12] MEDS ORDERED: Chlorhexidine 4% Topical 120 APPLIC/120 ML Bottle TOPICAL SCH (11:45)
[2018-08-12] MEDS ORDERED: Sodium Chlor 0.9% Inj 500 ML IV.CONT ONE (11:45)
[2018-08-12] MEDS ORDERED: Chlorhexidine Gluconate 2% 1 Pack (2 Cloths) TOPICAL ONE (11:45)
[2018-08-12] MEDS ORDERED: Metoprolol Tartrate 25 MG Tablet PO ONE (11:45)
[2018-08-12] MEDS ORDERED: Lidocaine PF 1% Inj 5 ML Syringe OTHER ONE (13:24)
[2018-08-12] MEDS ORDERED: Morphine Inj 4 MG/ML Vial IV.PUSH PRN (14:34)
[2018-08-12] MEDS ORDERED: Post-op Orders (for Pharmacy) OTHER STA (14:34)
--- NOTE | 2018-08-12 14:46 | P.OP ---
- Preoperative Diagnosis (1) Infection of left elbow Date of procedure: 08/12/18 Procedure: Irrigation and debridement of left arm and elbow Anesthesia: SWETA Surgeon: Barber Carlson MD [place] Tower Loader: Emiliano Brower PA-C The surgical procedure was assisted by my physician circulation assistant. My P.A. presence was necessary throughout this case for the manipulation and positioning of the surgical extremity. My P.A. was assisting me throughout the duration of this procedure. The skill set of a physician circulation assistant was medically necessary to complete this procedure. During the surgical case the imaging tech was working at the back table and the physician circulation assistant was directly assisting me. 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 He has a complicated history of left elbow infection. He has been treated with multiple antibiotics. He developed drainage from a left elbow wound yesterday. He has been seeing Dr. Montelongo of infectious disease. Informed consent was obtained preoperatively for irrigation debridement of left elbow and arm. I discussed this case with Dr. Montelongo as well as Dr. Prasad of pathology. Patient is brought the operating room. He was given IV sedation and general anesthesia. Timeout procedure was performed. He was placed in lateral decubitus position. Antibiotics were held until after cultures were obtained. Left arm was prepped with alcohol followed by Hibiclens and draped in usual sterile fashion. Timeout procedure was performed. Procedure began with excision of 2 nodules over the triceps muscle. There was one over the medial triceps and a second 1 over the lateral triceps. A 1 cm incision was made over each nodule. The nodules were carefully dissected out and excised. The nodules were well contained within fascia. These incisions were now closed with 3-0 PDS and 3-0 nylon. Next attention was turned to the olecranon region. Full-thickness skin was excised from the sinus tract near the olecranon. Thickness flaps were incised sharply. The entire sinus tract lesion was excised. This tissue was sent to pathology. Fascial layer was also debrided around the olecranon. The forearm was examined. There was an area of mild fluctuance along the proximal ulna shaft. The incision was extended distally. This area of fluctuance was visualized. There appeared to be some thick granulomatous material with possible abscess present. This region was completely excised sharply. After completion of excisional debridement the wound was thoroughly irrigated with pulsatile lavage. At this point attention was turned to wound closure. The subcutaneous tissue was closed with 3-0 PDS and skin was closed with 3-0 nylon. Sterile dressings were applied. Patient was awakened and transferred to recovery room in stable condition. Needle and sponge counts were correct.
[2018-08-12] MEDS ORDERED: fentaNYL Citrate Inj 100 MCG/2 ML Ampul ONE (14:52)
[2018-08-12] MEDS ORDERED: *HYDROmorphone PF Inj 1 MG/ML Ampul PERIprocedural Use ONLY ONE (15:12)
--- NOTE | 2018-08-12 16:30 | P.CONID ---
History of Present Illness Service: ID Consult date: 08/12/18 Requesting Physician: Barber Eid Reason for Consult: L elbow infx Primary Care Provider: Merry Montelongo MD History of Present Illness: 52 yo male known to me He has M. abscessus/BARTOLO L olecranon bursitis s/p multiple debridements including a radical debridment 1 yr ago with VAC placement He was on abx for 1 year, however due to resistance pattern of his bacteria and serios side effects he could not stay on recommended myulti drug therapy He actually did pretty well on tedizolid + clarithro combination, but refused recommended 3 rd drug (tygayl, amikacin and/or cllofazimine) due to side effects He actually never started clofazimine He was doing very well on clarithromycin +tedizolid Rx, underwent grafting and ended up with complete healing with ecellent functional and cosmetic result , however in February he stopped tedisolid 2/2 paresthezias in b/l feet that he developped. He refused to substitute it with another drug with known susceptibility About 10 days ago he noticed lumps in the affected area and yesterday started to drain Today he underwent I+D by Dr Eid He has MRI done today that showed no bone involvement, but multiple abscesses and granulation tissues His MR was dw Dr Wynn today His op findings were dw Dr Eid Review of Systems All other systems reviewed negative except as stated in HPI PMFSH - History History Provided By: Patient - Medical History Medical History: Medical History (Last Updated 08/12/18 @ 16:41 by Merry Montelongo MD) Atypical mycobacterial disease Onset Date: ~2016 BPH (benign prostatic hyperplasia) Sleep apnea - Surgical History Surgical History: Surgical History (Last Updated 08/12/18 @ 12:50 by Sandra Anderson) History of incision and drainage - Family History Family History: Family History (Last Updated 08/12/18 @ 16:41 by Merry Montelongo MD) Other Family history non-contributory - Social History I have reviewed the patient's Social History: Yes - Tobacco History Second Hand Smoke Exposure: No Tobacco Use In Past 30 Days: No Smoking Status: Never smoker - Alcohol History How Often Do You Have a Drink Containing Alcohol: 2 to 3 times a week - Substance Use History Substance History: No History of Abuse - Travel History Recent Travel in the [facility] Within the Last 8 Weeks: No Recent Travel Out of the Country Within the Last 8 Weeks: No Medications and Allergies Active Medications: Active Medications Hydrocodone Bitart/Acetaminophen ([place] 7.5/325) 1 tab PO Q3H PRN PRN Reason: Pain Scale 3-10 Al Hydroxide/Mg Hydroxide (Milk Of Tari Olveraq) 30 ml PO BID PRN PRN Reason: MILD CONSTIPATION Chlorhexidine Gluconate (Hibiclens 4% Topical) 1 applicatio TOPICAL ONCE HORACE Stop: 08/16/18 11:44 Last Admin: 08/12/18 11:40 Dose: 1 applicatio Diphenhydramine HCl (Benadryl) 25 mg PO Q6H PRN PRN Reason: ITCHING Lactated Ringer's (Lr 1000 Ml Inj) 1,000 mls @ 30 mls/hr IV.CONT .Q24H ONE Stop: 08/13/18 11:44 Last Admin: 08/12/18 11:30 Dose: 30 mls/hr Sodium Chloride (Ns Inj) 500 mls @ 30 mls/hr IV.CONT .[id number] ONE Stop: 08/13/18 04:24 Last Admin: 08/12/18 12:25 Dose: Not Given Miscellaneous Information (Misc Nursing Information) 0 each OTHER UNSCH PRN PRN Reason: SEE LABEL COMMENTS Stop: 08/13/18 14:50 Morphine Sulfate (Morphine Inj) 4 mg IV.PUSH Q3H PRN PRN Reason: BREAKTHROUGH PAIN Ondansetron HCl (Zofran Odt) 4 mg PO Q6H PRN PRN Reason: NAUSEA OR VOMITING Ondansetron HCl (Zofran Inj) 4 mg IV.PUSH Q6H PRN PRN Reason: NAUSEA OR VOMITING Senna/Docusate Sodium (Fabby-Colace) 1 tab PO BID HORACE Sodium Chloride (Ns Flush) 2 ml IV.FLUSH BID HORACE Sodium Chloride (Ns Flush) 2 ml IV.FLUSH PRN PRN PRN Reason: FLUSH AFTER USING IV ACCESS Allergies Allergy/AdvReac Type Severity Reaction Status Date / Time rifabutine AdvReac Severe Bone Uncoded 08/12/18 18:22 Marrow Suppression Home Medications Medication Instructions Recorded Confirmed Type clarithromycin 500 mg PO BID 08/12/18 08/12/18 History terazosin 2 mg PO DAILY 08/12/18 08/12/18 History Exam Vital signs: Vital Signs 08/12/18 12:08 08/12/18 14:57 08/12/18 15:47 Temperature 98.1 F 97.5 F L 97.5 F L Pulse Rate 53 L 73 73 Respiratory Rate 20 15 15 Blood Pressure 126/82 134/63 134/63 Pulse Oximetry 99 100 100 Intake & Output 08/11/18 08/12/18 08/12/18 18:59 06:59 18:59 Weight 103.9 kg Other: Weight On Admission 103.9 kg - Constitutional no acute distress, average body habitus - Routine HEENT Exam Head: Present: normocephalic, atraumatic Eye: Present: EOMI, PERRL. Absent: conjunctival icterus ENT: Present: mucous membranes moist, oropharynx clear, dentition normal - Routine Neck Exam Present: supple, full ROM. Absent: JVD, lymphadenopathy - Routine Chest/Breast/Axilla Exam Axillae: Absent: lymphadenopathy, mass - Routine Respiratory Exam Present: CTA bilaterally. Absent: accessory muscle use, rhonchi, wheezes - Routine Cardiovascular Exam Present: RRR, S1, S2. Absent: murmur, gallop, rubs - Routine Abdominal Exam Present: soft, normoactive bowel sounds. Absent: tenderness, distended, organomegaly, mass - Routine Extremities Exam Absent: cyanosis, clubbing, edema Comments: LUE with dressing in place inatact - Routine Skin Exam Present: intact, dry, warm. Absent: cyanosis, rash - Routine Neurological Exam Present: alert, oriented X3, CN II-XII intact, moving all extremities. Absent: sensory deficit, motor deficit - Routine Psychiatric Exam Present: normal affect, normal thought process, cooperative, good insight. 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 POor compliance with Rx - incomplete surgical irradication during previous surgeries - r/o decreased host immunity sp debridement PLAN: chk SPEP, HIV HCV/HBV., Immunoglobulines - pt was counselled for HIV testing and is agreable repeat CBC in am EKG PORT placement by IR Pt will likely require additional debridements Plan to start abx after path results are availbale will plan : biaxine/tedizolid/tygacyl/ Amikacin possibly clofazimine [facility] Pt is willing to adhere to drug Rx and fu labs, tests Treatment plan and options were extensively dw with pt @ b/s All questions answered OK to dc pt from ID standpoint
[2018-08-12 16:56] LABS: Baso % (Auto) 0.2 % (0.0-2.0); Eos % (Auto) 0.3 % (0.0-4.0); Hematocrit 44.2 % (39.0-51.0); Hemoglobin 14.9 gm/dL (13.0-17.0); Lymph # (Auto) 0.6 th/mm3 (1.0-4.8); Lymph % (Auto) 10.4 % (9.0-44.0); Mean Corpuscular HGB Conc 33.6 % (32.0-36.0); Mean Corpuscular Hemoglobin 31.5 pg (27.0-34.0); Mean Corpuscular Volume 93.8 fL (80.0-100.0); Mono # (Auto) 0.1 th/mm3 (0.0-0.9); Neut # (Auto) 4.9 th/mm3 (1.8-7.7); Neut % (Auto) 87.1 % (16.0-70.0); Platelet Count 167 th/mm3 (150-450); Red Blood Count 4.71 mil/mm3 (4.50-5.90); Red Cell Distribution Width 13.3 % (11.6-17.2); White Blood Count 5.7 th/mm3 (4.0-11.0)
[2018-08-12 17:18] LABS: Erythrocyte Sedimentation Rate 3 mm/hr (0-20)
[2018-08-12 17:23] LABS: Albumin 3.9 g/dL (3.4-5.0); Anion Gap 7 meq/L (5-15); Aspartate Aminotransferase 30 U/L (15-37); Blood Urea Nitrogen 19 mg/dL (7-18); Calcium 8.7 mg/dL (8.5-10.1); Carbon Dioxide 27.6 meq/L (21.0-32.0); Chloride 104 meq/L (98-107); Glomerular Filtration Rate 71 mL/min (>89); Glucose,Random 124 mg/dL (74-106); Potassium 3.6 meq/L (3.5-5.1); Sodium 139 meq/L (136-145)
[2018-08-12 17:24] LABS: Alanine Aminotransferase 38 U/L (12-78)
[2018-08-12 17:26] LABS: Alkaline Phosphatase 53 U/L (45-117); Total Protein 7.4 g/dL (6.4-8.2)
--- NOTE | 2018-08-12 18:29 | P.DCO ---
Post Hospital Infusion Therapy - Infusion Therapy Location of Infusion Therapy: Home Health Care IV Infusion Order - Patient Information Patient Weight: 103.9 kg - Diagnosis (1) Infection of left elbow - Administer Medication Amikacin Dose: 1.5 grams IV Directions: q 24 hours Start Treatment: 08/13/18 Stop Treatment: 11/13/18 Tigecycline Dose: 50 mg IV Directions: q 12 hours Additional Dosing Instructions: 1st loading dose of Tygacyl 100 mg x 1 Start Treatment: 08/13/18 Stop Treatment: 11/13/18 - Additional Information Venous Access: Implanted Port Additional Instructions: [x] Peripheral flush and dressing changes per protocol [x] Implanted port and central head bander and liner operator: * Implanted port: 10 ml Normal Saline followed by 5 ml Heparin 100 units/ml Heparin flush after each use and monthly to maintain. [] May leave port accessed during therapy. [] May leave peripheral site accessed for duration of therapy. [x] If patient has SOB or respiratory distress, check oxygen saturation. If less than 90% or clinical signs of respiratory distress, administer oxygen at 2 L/min. via nasal cannula and notify physician. [x] Anaphylaxis/Reaction orders: * Stop infusion. * Keep IV line open with saline flush. * Notify physician. * Monitor vital signs every 15 minutes until symptoms resolve. * Check Oxygen saturation; Oxygen at 2 L/min. via nasal cannula if less than 90% or clinical signs of respiratory distress. * Administer diphenhydramine (Benadryl) 25 mg IV STAT, (unless patient has received as pre-med). May repeat once, if necessary. * Solu-Cortef 250 mg IVP over 30-60 seconds, use 100 mg vials for each dissolution. * Epinephrine (1mg/1 ml) 0.3 mg subcutaneously or IVP now with any signs of respiratory distress. * Check with physician for new additional pre-med orders if patient is re- challenged or re-treated. [x] May remove PICC line when treatment complete, after confirming with Physician. [x] If the patient is admitted to the hospital, the ED, or transferred via EVAC , complete transfer form including medication reconciliation order sheet. Weekly Labs: Amikacin Level, CBC w/diff, CMP - Patient Information Allergies rifabutine Adverse Reaction (Severe, Uncoded 08/12/18 18:22) Bone Marrow Suppression neutropenia
[2018-08-12] MEDS: Senna/Docusate Sodium 8.6/50 MG Tablet PO SCH (21:03)
[2018-08-12 21:52] LABS: Hepatitits B Surface Antigen Nonreactive (Nonreactive)
[2018-08-12 22:25] LABS: Hepatitis A IgM Antibody Nonreactive (Nonreactive)
[2018-08-13] MEDS: Senna/Docusate Sodium 8.6/50 MG Tablet PO SCH (08:13)
[2018-08-13 09:14] VITALS: RESP 16; TEMP 97.9; O2SAT 98
[2018-08-13] MEDS ORDERED: Heparin Central Flush 100 UNIT/ML 5 ML Vial IV.FLUSH ONE (10:17)
[2018-08-13 10:47] LABS: Baso % (Auto) 0.2 % (0.0-2.0); Eos % (Auto) 0.2 % (0.0-4.0); Hematocrit 45.6 % (39.0-51.0); Hemoglobin 15.3 gm/dL (13.0-17.0); Lymph # (Auto) 0.9 th/mm3 (1.0-4.8); Mean Corpuscular HGB Conc 33.6 % (32.0-36.0); Mean Corpuscular Hemoglobin 31.6 pg (27.0-34.0); Mean Corpuscular Volume 94.2 fL (80.0-100.0); Mean Platelet Volume 9.1 fL (7.0-11.0); Mono # (Auto) 0.6 th/mm3 (0.0-0.9); Mono % (Auto) 6.8 % (0.0-8.0); Neut # (Auto) 6.9 th/mm3 (1.8-7.7); Neut % (Auto) 81.8 % (16.0-70.0); Platelet Count 184 th/mm3 (150-450); Red Blood Count 4.84 mil/mm3 (4.50-5.90); Red Cell Distribution Width 13.1 % (11.6-17.2); White Blood Count 8.5 th/mm3 (4.0-11.0)
--- NOTE | 2018-08-13 10:54 | P.RAD ---
Post PICC Progress Note - Pre Procedure Diagnosis (1) Infection of left elbow - Post Procedure Diagnosis (1) Infection of left elbow - Procedure Procedure: right PICC line placement Procedure Date: 08/13/18 Supervising Radiologist: Jayden Dickson Jr, MD Proceduralist/Assist: Jana Bermeo - Device Side: right Device: single lumen PICC Line Length (cm): 45 Catheter: Power PICC - Plan of Activity Patient to Unit: Nursing Unit
[2018-08-13 11:58] VITALS: BP 133/71; PULSE 60
--- NOTE | 2018-08-13 12:18 | ECG ---
Date Performed: 08/12/2018 Time Performed: 19:44:02 PTAGE: 52 years EKG: Sinus rhythm INCOMPLETE RIGHT BUNDLE BRANCH BLOCK NORMAL ECG PREVIOUS TRACING : 08/16/2017 10.36 DOCTOR: Vernon Patel Interpretating Date/Time 08/13/2018 12:38:18
--- NOTE | 2018-08-13 12:34 | P.PNOP ---
Subjective Interval history: Ramos is postop day #1 status post left elbow irrigation and debridement. No complaints. Awake and alert. Physical Exam Vital signs: Vital Signs 08/12/18 14:57 08/12/18 15:15 08/12/18 15:30 Temperature 97.5 F L Pulse Rate 73 64 55 L Respiratory Rate 15 15 16 Blood Pressure 134/63 118/68 132/69 Pulse Oximetry 100 99 99 08/12/18 15:45 08/12/18 16:00 08/12/18 17:18 Temperature 97.4 F L 97.7 F Pulse Rate 54 L 57 L 54 L Respiratory Rate 15 17 18 Blood Pressure 129/72 129/67 153/65 H Pulse Oximetry 99 98 98 08/12/18 20:00 08/13/18 00:00 08/13/18 03:27 Temperature 97.8 F 97.3 F L Pulse Rate 58 L 52 L Respiratory Rate 19 17 18 Blood Pressure 115/57 L 133/62 Pulse Oximetry 97 96 08/13/18 04:00 08/13/18 08:00 08/13/18 11:57 Temperature 97.6 F 97.9 F 97.9 F Pulse Rate 52 L 59 L 60 Respiratory Rate 20 16 16 Blood Pressure 136/57 L 121/65 133/71 Pulse Oximetry 97 98 98 Intake & Output 08/12/18 08/13/18 08/13/18 18:59 06:59 18:59 Intake Total 800 / 800 240 / 240 0 / 0 Output Total 25 / 25 Balance 775 / 775 240 / 240 0 / 0 Weight 103.9 kg 103.9 kg Intake: IV 0 / 0 LR 1000 mL Inj 1,000 ML @ 30 0 / 0 mls/hr IV.CONT .Q24H ONE Rx#: [id number] Oral 240 / 240 Anesthesia Amount 800 / 800 Output: Estimated Blood Loss 25 / 25 Other: # Voids 2 Weight On Admission 103.9 kg Narrative: Ramos is awake and alert. No complaints. Examination of left arm reveals serosanguineous drainage on his dressing. Forearm compartments are soft. Sensation is intact in all fingers. Minimal pain with elbow or shoulder motion. Results - Labs CBC & Chem 7: 08/13/18 08:29 08/12/18 16:44 Laboratory Results - last 24 hr 08/12/18 08/12/18 08/12/18 16:44 16:44 19:57 WBC 5.7 RBC 4.71 Hgb 14.9 Hct 44.2 MCV 93.8 MCH 31.5 MCHC 33.6 RDW 13.3 Plt Count 167 MPV 8.0 Neut % (Auto) 87.1 H Lymph % (Auto) 10.4 [place] % (Auto) 2.0 Eos % (Auto) 0.3 Baso % (Auto) 0.2 Neut # (Auto) 4.9 Lymph # (Auto) 0.6 L [place] # (Auto) 0.1 Eos # (Auto) 0.0 Baso # (Auto) 0.0 WBC Differential . Differential Comment Auto diff final ESR 3 Sodium 139 Potassium 3.6 Chloride 104 Carbon Dioxide 27.6 Anion Gap 7 BUN 19 H Creatinine 1.10 Estimated GFR 71 L Random Glucose 124 H Calcium 8.7 Total Bilirubin 0.6 AST 30 ALT 38 Alkaline Phosphatase 53 C-Reactive Protein Less than 0.29 Total Protein 7.4 Total Protein (PEP) Albumin 3.9 Hepatitis A IgM Ab Cancelled Hep Bs Antigen Cancelled Hep B Core IgM Ab Cancelled Hep C IgG Ab Cancelled HIV 1&2 Ab/P24 Ag 4thGn 08/12/18 08/12/18 08/13/18 19:57 19:57 08:29 WBC 8.5 RBC 4.84 Hgb 15.3 Hct 45.6 MCV 94.2 MCH 31.6 MCHC 33.6 RDW 13.1 Plt Count 184 MPV 9.1 Neut % (Auto) 81.8 H Lymph % (Auto) 11.0 [place] % (Auto) 6.8 Eos % (Auto) 0.2 Baso % (Auto) 0.2 Neut # (Auto) 6.9 Lymph # (Auto) 0.9 L [place] # (Auto) 0.6 Eos # (Auto) 0.0 Baso # (Auto) 0.0 WBC Differential . Differential Comment Auto diff final ESR Sodium Potassium Chloride Carbon Dioxide Anion Gap BUN Creatinine Estimated GFR Random Glucose Calcium Total Bilirubin AST ALT Alkaline Phosphatase C-Reactive Protein Total Protein Total Protein (PEP) 7.1 Albumin Hepatitis A IgM Ab Nonreactive Hep Bs Antigen Nonreactive Hep B Core IgM Ab Nonreactive Hep C IgG Ab Nonreactive HIV 1&2 Ab/P24 Ag 4thGn Nonreactive Microbiology 08/11/18 Unknown Wound - Elbow Gram Stain - Final 08/11/18 Unknown Wound - Elbow Wound Culture - Preliminary Moderate growth normal skin elsa No anaerobes isolated 08/11/18 Unknown Wound - Elbow Acid Fast Bacilli Smear - Final No acid fast bacilli seen 08/11/18 Unknown Wound - Elbow Fungal Smear - Final No fungal elements seen 08/12/18 14:15 Tissue - Elbow Fungal Smear - Final No fungal elements seen 08/12/18 14:09 Tissue - Elbow Fungal Smear - Final No fungal elements seen 08/12/18 14:07 Tissue - Elbow Fungal Smear - Final No fungal elements seen 08/12/18 14:15 Tissue - Elbow Gram Stain - Final 08/12/18 14:09 Tissue - Elbow Gram Stain - Final 08/12/18 14:07 Tissue - Elbow Gram Stain - Final Assessment and Plan - Assessment and Plan Postop day #1 status post left elbow irrigation debridement We will change dressing today--home health may change dressing at home every day or every other day Ortho cleared for discharge if antibiotics are arranged by infectious disease Follow-up with Dr. Eid in 2 weeks
--- NOTE | 2018-08-13 12:40 | P.DCO ---
- Nursing Nursing: Dressing changes, Other (PICC line care and maintenance) Dressing changes: Daily dressing change, Sandeep wrap, 4x4s, Xeroform, Other - Certification Need for Home Health services: I have seen patient Maynor De La O on 08/13/18. My clinical findings support the need for the requested home health care services because: Homebound Certification: I certify that my clinical findings support that this patient is homebound because:
--- NOTE | 2018-08-13 12:41 | IR ---
EXAM DATE: 08/13/2018 11:04 AM EST AGE/SEX: 52 years / Male INDICATIONS: Patient with recurrent mycobacterial infection in need of PICC line placement for antib iotics. CLINICAL DATA: This is the patient's subsequent encounter. Patient reports that signs and symptoms h ave been present for 1 day and indicates a pain score of 0/10. MEDICAL/SURGICAL HISTORY: Atypical mycobacterial disease, BPH, Sleep apnea Multiple PICC line placeme nt, Incision and drainage COMPARISON: No prior exams available for comparison. FLUORO TIME (min): 0.3 IMAGE SERIES: 1 ACCESS SITE: Right brachial vein DEVICE(S): 4 [place] single lumen X45CM Xcela Power PICC . . PROCEDURE : 1. Ultrasound guidance for venous catheterization. 2. Fluoroscopic guidance. 3. Ultrasound & fluoroscopic guided central venous Power PICC line placement. The risks, benefits and alternatives to the procedure were explained and verbal and written consent w as obtained. The site was prepped in sterile fashion. Full sterile technique was used, including ca p, mask, sterile gloves and gown and a large sterile sheet. Hand hygiene and 2% chlorhexidine prep w as utilized per protocol for cutaneous antisepsis with appropriate dry time for site. Sterile gel a nd sterile probe cover were utilized for ultrasound guidance. The skin and subcutaneous tissues wer e infiltrated with local anesthetic solution. Under direct ultrasound guidance, a suitable vein was accessed and a measuring guidewire was introduc ed and positioned in the central venous system. The ultrasound images depicting access guidance were saved and stored to PACS for permanent record. A Power Injectable PICC line was cut to prescribed length and introduced, positioned with tip at the cavoatrial junction level. The line was flushed and secured per protocol. CONCLUSION: 1. Uncomplicated central venous Power PICC line placement. 2. The PICC line can be used immediately. Electronically signed by: Jayden Dickson MD 08/13/2018 12:39 PM EST
--- NOTE | 2018-08-13 12:48 | P.DS ---
Date of admission: 08/12/18 16:29 Primary care physician: Merry Montelongo MD Attending physician on discharge: Barber Carlson Brief History from admission: Maynor is a 52-year-old male who has had recurrent infections to his left elbow. It appeared that the infection had been cleared but unfortunately over the past week in new site of drainage and tunneling was noted. He was admitted to [place] for irrigation debridement of his left elbow. He has been following with infectious disease for his continued infection with mycobacterium. DS: Diagnosis - Discharge Diagnosis (1) Infection of left elbow Status: Acute DS: Summary Hospital Course: Maynor is brought to the operating room and after consents his left elbow is irrigated and debrided and cultures are obtained and 2 samples are sent to pathology. Sterile dressings are applied and remains hemodynamically stable and appropriate pain control. He is continued to be followed by infectious disease. Once antibiotics were arranged and a PICC line was secured he was discharged with home health care and antibiotics. He'll return in [address] Carlson or PA. - Time Spent with Patient Total time spent providing and/or coordinating discharge services: Greater than 30 minutes - Quality: VTE Deep Vein Thrombosis/Pulmonary Embolism Present on Admission: No Exam Vital signs: Vital Signs 08/12/18 14:57 08/12/18 15:15 08/12/18 15:30 Temperature 97.5 F L Pulse Rate 73 64 55 L Respiratory Rate 15 15 16 Blood Pressure 134/63 118/68 132/69 Pulse Oximetry 100 99 99 08/12/18 15:45 08/12/18 16:00 08/12/18 17:18 Temperature 97.4 F L 97.7 F Pulse Rate 54 L 57 L 54 L Respiratory Rate 15 17 18 Blood Pressure 129/72 129/67 153/65 H Pulse Oximetry 99 98 98 08/12/18 20:00 08/13/18 00:00 08/13/18 03:27 Temperature 97.8 F 97.3 F L Pulse Rate 58 L 52 L Respiratory Rate 19 17 18 Blood Pressure 115/57 L 133/62 Pulse Oximetry 97 96 08/13/18 04:00 08/13/18 08:00 08/13/18 11:57 Temperature 97.6 F 97.9 F 97.9 F Pulse Rate 52 L 59 L 60 Respiratory Rate 20 16 16 Blood Pressure 136/57 L 121/65 133/71 Pulse Oximetry 97 98 98 Intake & Output 08/12/18 08/13/18 08/13/18 18:59 06:59 18:59 Intake Total 800 / 800 240 / 240 0 / 0 Output Total Balance 775 / 775 240 / 240 0 / 0 Weight 103.9 kg 103.9 kg Intake: IV 0 / 0 LR 1000 mL Inj 1,000 ML @ 30 0 / 0 mls/hr IV.CONT .Q24H ONE Rx#: [id number] Oral 240 / 240 Anesthesia Amount 800 / 800 Output: Estimated Blood Loss Other: # Voids 2 Weight On Admission 103.9 kg Narrative: The patient is normocephalic and atraumatic. Pupils are equal and round and reactive to light. Extraocular motion is intact. Cranial nerves II through XII are grossly intact. Hearing is intact bilaterally. Trachea is midline with no lymphadenopathy. Breathing is regular with no wheezing or accessory muscle use. Heart is regular rate and rhythm. Palpable pulses in all 4 extremities that are regular in rhythm and intensity. Abdomen appears soft and nontender. Left upper extremity has clean dressings with mild serosanguineous drainage. Swelling is minimal and has intact sensation over the radial ulnar median nerve distributions good capillary refills. He has full extension and flexion of all fingers Results Procedures completed during hospitalization: irrigation and debridement of left elbow Labs on day of discharge: Labs from last 24 hours 08/13/18 08/12/18 08/12/18 08:29 19:57 19:57 WBC 8.5 RBC 4.84 Hgb 15.3 Hct 45.6 MCV 94.2 MCH 31.6 MCHC 33.6 RDW 13.1 Plt Count 184 MPV 9.1 Neut % (Auto) 81.8 H Lymph % (Auto) 11.0 [place] % (Auto) 6.8 Eos % (Auto) 0.2 Baso % (Auto) 0.2 Neut # (Auto) 6.9 Lymph # (Auto) 0.9 L [place] # (Auto) 0.6 Eos # (Auto) 0.0 Baso # (Auto) 0.0 WBC Differential . Differential Comment Auto diff final ESR Sodium Potassium Chloride Carbon Dioxide Anion Gap BUN Creatinine Estimated GFR Random Glucose Calcium Total Bilirubin AST ALT Alkaline Phosphatase C-Reactive Protein Total Protein Total Protein (PEP) 7.1 Albumin Albumin (PEP) Pending Albumin/Globulin Ratio Pending Cvuby-[id number]-Ubyrvuhqb Pending Oeimr-7-Zmaueahse Pending Beta Globulins Pending Gamma Globulins Pending PEP Pathologist Comment Pending IgG Pending IgA Pending IgM Pending Hepatitis A IgM Ab Nonreactive Hep Bs Antigen Nonreactive Hep B Core IgM Ab Nonreactive Hep C IgG Ab Nonreactive HIV 1&2 Ab/P24 Ag 4thGn Nonreactive 08/12/18 08/12/18 08/12/18 19:57 16:44 16:44 WBC 5.7 RBC 4.71 Hgb 14.9 Hct 44.2 MCV 93.8 MCH 31.5 MCHC 33.6 RDW 13.3 Plt Count 167 MPV 8.0 Neut % (Auto) 87.1 H Lymph % (Auto) 10.4 [place] % (Auto) 2.0 Eos % (Auto) 0.3 Baso % (Auto) 0.2 Neut # (Auto) 4.9 Lymph # (Auto) 0.6 L [place] # (Auto) 0.1 Eos # (Auto) 0.0 Baso # (Auto) 0.0 WBC Differential . Differential Comment Auto diff final ESR 3 Sodium 139 Potassium 3.6 Chloride 104 Carbon Dioxide 27.6 Anion Gap 7 BUN 19 H Creatinine 1.10 Estimated GFR 71 L Random Glucose 124 H Calcium 8.7 Total Bilirubin 0.6 AST 30 ALT 38 Alkaline Phosphatase 53 C-Reactive Protein Less than 0.29 Total Protein 7.4 Total Protein (PEP) Albumin 3.9 Albumin (PEP) Albumin/Globulin Ratio Bmrdq-6-Hvgpuqneb Olphf-8-Jvzhnphkn Beta Globulins Gamma Globulins PEP Pathologist Comment IgG IgA IgM Hepatitis A IgM Ab Cancelled Hep Bs Antigen Cancelled Hep B Core IgM Ab Cancelled Hep C IgG Ab Cancelled HIV 1&2 Ab/P24 Ag 4thGn Preliminary micro results at discharge 08/11/18 Unknown Wound Culture - Preliminary Wound - Elbow Moderate growth normal skin elsa No anaerobes isolated Discharge Plan - Discharge Disposition Patient Disposition: W/Home Health Service - Discharge Condition Condition: Good - Discharge Order Discharge Orders: Discharge Order (Routine); Ordered 08/13/18 Ordered By: Mathieu Brower Orthopedic Clear for Discharge (Routine); Ordered 08/13/18 Ordered By: Barber Carlson - Physicians Team Primary Care Provider: Merry Montelongo Attending Provider: Barber Carlson Other Providers: Barber Carlson MD ; Merry Montelongo MD - Rxs /Orders / Referrals /Forms Prescriptions: Continue clarithromycin 500 mg Tablet 500 mg PO BID terazosin 2 mg Capsule 2 mg PO DAILY Referrals: Merry Montelongo MD [Primary Care Provider] - See Instructions Barber Carlson MD [Physician] - See Instructions (2weeks) - Discharge Instructions Patient Printed Instructions: Incision and Drainage (DC) Additional Instructions: Audiogramme PRIOR to starting amikacin
--- NOTE | 2018-08-13 14:05 | P.PNID ---
Subjective Remarks: pt bled a little overnight but overwise is OK no fever, no other c/o Antibiotics: none Allergies/Adverse Reactions: Allergies rifabutine Adverse Reaction (Severe, Uncoded 08/12/18 18:22) Bone Marrow Suppression neutropenia Objective Vital Signs 08/12/18 14:57 08/12/18 15:15 08/12/18 15:30 Temperature 97.5 F L Pulse Rate 73 64 55 L Respiratory Rate 15 15 16 Blood Pressure 134/63 118/68 132/69 Pulse Oximetry 100 99 99 08/12/18 15:45 08/12/18 16:00 08/12/18 17:18 Temperature 97.4 F L 97.7 F Pulse Rate 54 L 57 L 54 L Respiratory Rate 15 17 18 Blood Pressure 129/72 129/67 153/65 H Pulse Oximetry 99 98 98 08/12/18 20:00 08/13/18 00:00 08/13/18 03:27 Temperature 97.8 F 97.3 F L Pulse Rate 58 L 52 L Respiratory Rate 19 17 18 Blood Pressure 115/57 L 133/62 Pulse Oximetry 97 96 08/13/18 04:00 08/13/18 08:00 08/13/18 11:57 Temperature 97.6 F 97.9 F 97.9 F Pulse Rate 52 L 59 L 60 Respiratory Rate 20 16 16 Blood Pressure 136/57 L 121/65 133/71 Pulse Oximetry 97 98 98 Intake & Output 08/12/18 08/13/18 08/13/18 18:59 06:59 18:59 Intake Total 800 / 800 240 / 240 0 / 0 Output Total / 25 Balance 775 / 775 240 / 240 0 / 0 Weight 103.9 kg 103.9 kg Intake: IV 0 / 0 LR 1000 mL Inj 1,000 ML @ 30 0 / 0 mls/hr IV.CONT .Q24H ONE Rx#: [id number] Oral 240 / 240 Anesthesia Amount 800 / 800 Output: Estimated Blood Loss 25 / Other: # Voids 2 Weight On Admission 103.9 kg 08/11/18 Unknown Wound - Elbow Gram Stain - Final 08/11/18 Unknown Wound - Elbow Wound Culture - Preliminary Moderate growth normal skin elsa No anaerobes isolated 08/11/18 Unknown Wound - Elbow Acid Fast Bacilli Smear - Final No acid fast bacilli seen 08/11/18 Unknown Wound - Elbow Mycobacterial Culture - Pending 08/11/18 Unknown Wound - Elbow Fungal Smear - Final No fungal elements seen 08/11/18 Unknown Wound - Elbow Fungal Culture - Pending 08/12/18 14:15 Tissue - Elbow Fungal Smear - Final No fungal elements seen 08/12/18 14:15 Tissue - Elbow Fungal Culture - Pending 08/12/18 14:09 Tissue - Elbow Fungal Smear - Final No fungal elements seen 08/12/18 14:09 Tissue - Elbow Fungal Culture - Pending 08/12/18 14:07 Tissue - Elbow Fungal Smear - Final No fungal elements seen 08/12/18 14:07 Tissue - Elbow Fungal Culture - Pending 08/12/18 14:15 Tissue - Elbow Gram Stain - Final 08/12/18 14:15 Tissue - Elbow Wound Culture - Pending 08/12/18 14:09 Tissue - Elbow Gram Stain - Final 08/12/18 14:09 Tissue - Elbow Wound Culture - Pending 08/12/18 14:07 Tissue - Elbow Gram Stain - Final 08/12/18 14:07 Tissue - Elbow Wound Culture - Pending 08/12/18 14:15 Tissue - Elbow Acid Fast Bacilli Smear - Pending 08/12/18 14:15 Tissue - Elbow Mycobacterial Culture - Pending 08/12/18 14:09 Tissue - Elbow Acid Fast Bacilli Smear - Pending 08/12/18 14:09 Tissue - Elbow Mycobacterial Culture - Pending 08/12/18 14:07 Tissue - Elbow Acid Fast Bacilli Smear - Pending 08/12/18 14:07 Tissue - Elbow Mycobacterial Culture - Pending Lab - Hematology Results 08/12/18 08/13/18 16:44 08:29 WBC 5.7 8.5 RBC 4.71 4.84 Hgb 14.9 15.3 Hct 44.2 45.6 MCV 93.8 94.2 MCH 31.5 31.6 MCHC 33.6 33.6 RDW 13.3 13.1 Plt Count 167 184 MPV 8.0 9.1 Neut % (Auto) 87.1 H 81.8 H Lymph % (Auto) 10.4 11.0 [place] % (Auto) 2.0 6.8 Eos % (Auto) 0.3 0.2 Baso % (Auto) 0.2 0.2 Neut # (Auto) 4.9 6.9 Lymph # (Auto) 0.6 L 0.9 L [place] # (Auto) 0.1 0.6 Eos # (Auto) 0.0 0.0 Baso # (Auto) 0.0 0.0 WBC Differential . . Differential Comment Auto diff final Auto diff final ESR 3 Lab - Chemistry Results 08/12/18 08/12/18 16:44 19:57 Sodium 139 Potassium 3.6 Chloride 104 Carbon Dioxide 27.6 Anion Gap 7 BUN 19 H Creatinine 1.10 Estimated GFR 71 L Random Glucose 124 H Calcium 8.7 Total Bilirubin 0.6 AST 30 ALT 38 Alkaline Phosphatase 53 C-Reactive Protein Less than 0.29 Total Protein 7.4 Total Protein (PEP) 7.1 Albumin 3.9 Imaging: ITS Impressions PICC Line Insertion 08/13/18 00:00 CONCLUSION: 1. Uncomplicated central venous Power PICC line placement. 2. The PICC line can be used immediately. 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 POor compliance with Rx - incomplete surgical irradication during previous surgeries - r/o decreased host immunity HIV HCV/HBV negative sp debridement PICC placed PLAN: chk SPEP, Immunoglobulines lymphopenia w/u - will order Lymphocyte profile, PORT placement by IR rima (in 2-4 weeks) Pt will likely require additional debridements Plan to start abx after path results are availbale Pt will start biaxine/tedizolid/tygacyl/ Amikacin on 08/14 Audiogramm prior to amikacin Pt was instructed to stay hydrated will prescribe Marinol to controll Tygacyl related nausea Pt is willing to adhere to drug Rx and fu labs, tests Fu with Dr Carlos @ [facility] Treatment plan and options were extensively dw with pt @ b/s All questions answered OK to dc pt from ID standpoint
--- NOTE | 2018-08-14 19:07 | P.PNADD ---
Addendum to Inpatient Note Additional information: pts was started on his 4 drug abx Rx His tygaly was changed to 100 mg daily after a loading dose of 200 mg That was dw Coleen from pharmacy
--- NOTE | 2018-08-15 14:38 | P.PNADD ---
Addendum to Inpatient Note Additional information: Marinol prescribe d 10 mg daily to fight nausea aw tygacyl Pt was counselled not to take marionol prior to driving etc He is aware of side effects affecting his concentration
--- NOTE | 2018-08-18 17:10 | P.PNADD ---
Addendum to Inpatient Note Additional information: I was contacted by IR attending this am when pt went today for PORT and noted to have a fluctuance in his L forearm Pt was seen NAD well appearing skin: no generalised rash STATUS localis: L arm with clean and dry and well approximated incision A 5-6 cm fluctuance was noted close to incision, but not right under incision No tenderness or redness Pt was sent for US guided aspiration after discussion with his surgeon Dr Carlson IR report was reviewed: serosang fluid was obtained All previous clx NGTD path with AFB resembling sdtructures in 3/3 specimen A: 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
== END 2018-08-13 15:22 | disposition home or self-care (01) ==
LOC: HSDC 11:04 → EDSTATUS 12:45 → N05 16:29
PROVIDERS: ADMIT Orthopaedic Surgery Orthopaedic Trauma; ATTEND Orthopaedic Surgery Orthopaedic Trauma